=== PATIENT | male | born 1960 | race Two or more races ===

== ENCOUNTER 2021-01-08 08:54 | Outpatient (CLI) | payer OTHER | END 2021-01-08 09:44 | disposition home or self-care (01) | LOC: OFIC 805 08:54 | PROVIDERS: ATTEND Otolaryngology Otology & Neurotology | DX: S09.8XXA Other specified injuries of head, initial encounter (principal); R04.0 Epistaxis ==

== ENCOUNTER 2021-01-14 09:26 | Outpatient (CLI) | payer OTHER | END 2021-01-14 16:38 | disposition home or self-care (01) | LOC: OFIC 805 09:26 | PROVIDERS: ATTEND Otolaryngology Otology & Neurotology | DX: S09.8XXA Other specified injuries of head, initial encounter (principal); R04.0 Epistaxis ==